=== PATIENT | female | born 1980 | race Caucasian/White ===

== ENCOUNTER → 2017-09-21 | Outpatient (CLI) | payer OTHER ==
[~2017-09-21] MED LIST: ACE3 PO; ACET-3017 PO; DOC100 PO; IBU800 PO; IBUP800T37 PO; IRON PO; IRON1TAB55 PO; LEV125 PO; MOM PO; PER PO; PREN-85 PO; SENN-187 PO
== END ==
LOC: LAB 16:36
PROVIDERS: ATTEND Internal Medicine Endocrinology, Diabetes & Metabolism
DX: C73 Malignant neoplasm of thyroid gland (principal); E89.0 Postprocedural hypothyroidism
CPT/HCPCS: 84443; 86800

== ENCOUNTER → 2018-09-16 | Outpatient (CLI) | payer OTHER ==
[2018-09-16 16:10] LABS: PLATELET COUNT, AUTOMATED 352 K/uL (150-450)
== END ==
LOC: LAB 15:46
PROVIDERS: ATTEND Internal Medicine Endocrinology, Diabetes & Metabolism
DX: R53.82 Chronic fatigue, unspecified (principal); E89.0 Postprocedural hypothyroidism; C73 Malignant neoplasm of thyroid gland
CPT/HCPCS: 36415; 82728; 83540; 83550; 84432; 84443; 85025; 86800